=== PATIENT | male | born 1980 | race Caucasian/White ===

== ENCOUNTER 2017-11-15 00:08 | Emergency (ER) | payer OTHER ==
--- OUTSIDE RECORDS SUMMARY | 2017-11-15 00:11 | XMS REPORT | Clinical Summary ---
:1980 Author Organization [facility] Address [address] [place] [address] Care Team Providers Name Role Phone Eric Sheldon MD Primary Care Provider Allergies Active Allergy Reactions Severity Noted Date Comments Silver Sulfadiazine Dermatitis Medium 01/01/2016 Ketorolac Rash Low 01/01/2016 Current Medications Prescription Sig. Disp. Refills Start Date End Date Status pregabalin (LYRICA) 150 Take 150 mg by mouth Active MG capsule 2 (two) times a day. traMADol (ULTRAM) 50 mg Take 50 mg by mouth Active tablet every 6 (six) hours as needed for moderate pain. Active Problems Problem Noted Date Herniated lumbar intervertebral disc 01/09/2016 Encounters Date Type Specialty Care Team Description 10/23/2017 Orders Only Neurosurgery Giselle Louis Lumbar radiculopathy ( Primary Dx) after 11/14/2016 Social History Tobacco Use Types Packs/Day Years Used Date Former Smoker 2 15 Comments: 03/2015 Alcohol Use Drinks/Week oz/Week Comments No Sex Assigned at Date Recorded Not on file Last Filed Vital Signs Not on file Plan of Treatment Health Maintenance Due Date Last Done Comments INFLUENZA VACCINE 02/10/2018 Implants Implanted Type Area Director Records Management Device Expiration Model / Identifier Date Serial / Lot System Spine Selnt For Dural Selng Exact 5ml Duraseal - [id number] Cardiovascular Right: INTEGRA / Implanted: 01/09/2016 (Quantity not on file) Implants Thoracic LIFESCIENCE / NEURO Results Not on fileafter 11/14/2016 Insurance Payer Benefit Plan / Group Subscriber ID Type Phone Address [facility] CHOICE/CHOICE + xxxxxxxxx HMO/PPO Home: [id number] [phone] [address]
--- NOTE | 2017-11-15 01:29 | ER ---
Nurse's Notes [facility] Name: Wilber Gregory Age: 37 yrs Sex: Male : 1980 Arrival Date: 11/15/2017 Time: 00:12 Bed 13 Private MD: Diagnosis: Irritant contact dermatitis Presentation: 11/15 00:40 Presenting complaint: Patient states: he has rash to right arm and right side of face fc that he noticed Thursday. Areas itch, burn and hurt. Applied Calamine to it with no relief. Transition of care: patient was not received from another setting of care. Onset of symptoms was November 13, 2017. Initial Sepsis Screen: Does the patient meet any 2 criteria? No. Patient's initial sepsis screen is negative. Does the patient have a suspected source of infection? No. Patient's initial sepsis screen is negative. Care prior to arrival: None. 00:40 Method Of Arrival: Ambulatory fc 00:40 Acuity: UMESH 4 fc Triage Assessment: 00:43 General: Appears uncomfortable, Behavior is calm, cooperative, appropriate for age. fc Pain: Complains of pain in right arm Pain currently is 3 out of 10 on a pain scale. Quality of pain is described as burning, dull, Pain began 2-3 days ago. Is continuous. EENT: No deficits noted. Neuro: Level of Consciousness is awake, alert, obeys commands, Oriented to person, place, time, situation. Cardiovascular: No deficits noted. Respiratory: No deficits noted. GI: No deficits noted. : No deficits noted. Derm: Skin is pink, warm \T\ dry. Rash noted that is itchy, red, raised, vesicular, on face and right arm. Musculoskeletal: Circulation, motion, and sensation intact. Capillary refill < 3 seconds, Range of motion: intact in all extremities. Historical: - Allergies: 00:43 Silvadene; fc 00:43 Toradol (Hives, rash); fc - Home Meds: 00:43 Lyrica 150 mg Oral 2 times per day [Active]; Paulina 10-325 mg oral tab 1 tab three times fc a day [Active]; baclofen 10 mg Oral tab 1 tab as needed [Active]; - PMHx: 00:43 Chronic pain; Back pain; fc - PSHx: 00:43 back surg x 2; Hernia repair; fc - Immunization history:: Last tetanus immunization: up to date. - Social history:: Smoking status: Patient uses tobacco products, smokes one-half pack cigarettes per day. Screenin:30 Abuse screen: Denies threats or abuse. Nutritional screening: No deficits noted. ea Tuberculosis screening: No symptoms or risk factors identified. Fall Risk None identified. Assessment: 01:27 General: Appears uncomfortable, Behavior is calm, cooperative, appropriate for age. ea Pain: Complains of pain in right arm Pain currently is 7 out of 10 on a pain scale. Quality of pain is described as burning. Neuro: Level of Consciousness is awake, alert, obeys commands, Oriented to person, place, time, situation. Cardiovascular: Patient's skin is warm and dry. Respiratory: Airway is patent Respiratory effort is even, unlabored, Respiratory pattern is regular, symmetrical. GI: No signs and/or symptoms were reported involving the gastrointestinal system. : No signs and/or symptoms were reported regarding the genitourinary system. EENT: No signs and/or symptoms were reported regarding the EENT system. Derm: Rash noted that is draining clear fluid, itchy, red, on right cheek, right ear and right roman catholic, right forearm and right upper arm. 01:39 Reassessment: Patient and/or family updated on plan of care and expected duration. Pain ea level reassessed. Patient is alert, oriented x 3, equal unlabored respirations, skin warm/dry/pink. Discharge instructions given to patient, verbalized the understanding of instruction. Vital Signs: 00:44 BP 127 / 90; Pulse 99; Resp 18; Temp 98.5(O); Pulse Ox 98% on R/A; Weight 93.89 kg (R); fc Height 5 ft. 10 in. (177.80 cm) (R); Pain 3/10; 01:29 BP 124 / 81; Pulse 89; Resp 18 S; Pulse Ox 97% ; Pain 7/10; ea 00:44 Body Mass Index 29.70 (93.89 kg, 177.80 cm) ED Course: 00:12 Patient arrived in ED. do 00:41 Triage completed. fc 00:44 Arm band placed on Patient placed in an exam room. fc 01:14 Shayna Ruiz RN is Primary Nurse. ea 01:19 Yeny Mae FNP-C is [facility]. snw 01:19 Collin Trujillo MD is Attending Physician. snw 01:30 Patient has correct armband on for positive identification. Bed in low position. Call ea light in reach. Side rails up X 1. 01:39 No provider procedures requiring assistance completed. Patient did not have IV access ea during this emergency room visit. Administered Medications: 01:36 Drug: ZyrTEC - Cetirizine 10 mg Route: PO; ea 01:41 Follow up: Response: Medication administered at discharge. ea 01:36 Drug: predniSONE 40 mg Route: PO; ea 01:40 Follow up: Response: Medication administered at discharge. ea 01:36 Drug: Pepcid 20 mg Route: PO; ea 01:40 Follow up: Response: Medication administered at discharge. ea Outcome: 01:28 Discharge ordered by . snw 01:39 Discharged to home ambulatory, with family. ea 01:39 Condition: improved 01:39 Discharge instructions given to patient, Instructed on discharge instructions, follow up and referral plans. medication usage, Demonstrated understanding of instructions, follow-up care, medications, Prescriptions given X 3. 01:40 Patient left the ED. ea Signatures: Yeny Mae FNP-C [employer]BBER WASHER-Csnw Meredith Roldan, RN RN Gerri Nayak Elena RN RN julain
--- NOTE | 2017-11-15 01:30 | EDPHYS ---
Physician Documentation [facility] Name: Wilber Gregory Age: 37 yrs Sex: Male : 1980 Arrival Date: 11/15/2017 Time: 00:12 Bed 13 Private MD: ED Physician Collin Trujillo HPI: 11/15 01:54 This 37 yrs old Male presents to ER via Ambulatory with complaints of Skin snw Problem. 01:54 The patient's rash thought to be caused by Dermatitis. The rash is located on the right snw cheek and right arm. The rash can be described as erythematous, patchy, pustular, raised, linear. Onset: The symptoms/episode began/occurred suddenly, 3 day(s) ago, and became persistent. Severity of symptoms: At their worst the symptoms were moderate. The patient has not experienced similar symptoms in the past, but family has similar symptoms. The patient has not recently seen a physician. Historical: - Allergies: 00:43 Silvadene; fc 00:43 Toradol (Hives, rash); fc - Home Meds: 00:43 Lyrica 150 mg Oral 2 times per day [Active]; [place] 10-325 mg oral tab 1 tab three times fc a day [Active]; baclofen 10 mg Oral tab 1 tab as needed [Active]; - PMHx: 00:43 Chronic pain; Back pain; fc - PSHx: 00:43 back surg x 2; Hernia repair; fc - Immunization history:: Last tetanus immunization: up to date. - Social history:: Smoking status: Patient uses tobacco products, smokes one-half pack cigarettes per day. ROS: 01:51 Constitutional: Negative for fever, chills, and weight loss, Eyes: Negative for injury, snw pain, redness, and discharge, ENT: Negative for injury, pain, and discharge, Neck: Negative for injury, pain, and swelling, Cardiovascular: Negative for chest pain, palpitations, and edema, Respiratory: Negative for shortness of breath, cough, wheezing, and pleuritic chest pain, Abdomen/GI: Negative for abdominal pain, nausea, vomiting, diarrhea, and constipation, Back: Negative for injury and pain, : Negative for injury, bleeding, discharge, and swelling, MS/Extremity: Negative for injury and deformity, Neuro: Negative for headache, weakness, numbness, tingling, and seizure. 01:51 Skin: Positive for rash. Exam: 01:51 Constitutional: This is a well developed, well nourished patient who is awake, alert, snw and in no acute distress. Head/Face: Normocephalic, atraumatic. Eyes: Pupils equal round and reactive to light, extra-ocular motions intact. Lids and lashes normal. Conjunctiva and sclera are non-icteric and not injected. Cornea within normal limits. Periorbital areas with no swelling, redness, or edema. ENT: Nares patent. No nasal discharge, no septal abnormalities noted. Tympanic membranes are normal and external auditory canals are clear. Oropharynx with no redness, swelling, or masses, exudates, or evidence of obstruction, uvula midline. Mucous membranes moist. Neck: Trachea midline, no thyromegaly or masses palpated, and no cervical lymphadenopathy. Supple, full range of motion without nuchal rigidity, or vertebral point tenderness. No Meningismus. Chest/axilla: Normal chest wall appearance and motion. Nontender with no deformity. No lesions are appreciated. Cardiovascular: Regular rate and rhythm with a normal S1 and S2. No gallops, murmurs, or rubs. Normal PMI, no JVD. No pulse deficits. Respiratory: Lungs have equal breath sounds bilaterally, clear to auscultation and percussion. No rales, rhonchi or wheezes noted. No increased work of breathing, no retractions or nasal flaring. Abdomen/GI: Soft, non-tender, with normal bowel sounds. No distension or tympany. No guarding or rebound. No evidence of tenderness throughout. Back: No spinal tenderness. No costovertebral tenderness. Full range of motion. MS/ Extremity: Pulses equal, no cyanosis. Neurovascular intact. Full, normal range of motion. Neuro: Awake and alert, GCS 15, oriented to person, place, time, and situation. Cranial nerves II-XII grossly intact. Motor strength 5/5 in all extremities. Sensory grossly intact. Cerebellar exam normal. Normal gait. Psych: Awake, alert, with orientation to person, place and time. Behavior, mood, and affect are within normal limits. 01:51 Skin: Appearance: normal except for affected area, contact dermatitis, on the right cheek and right arm. Vital Signs: 00:44 BP 127 / 90; Pulse 99; Resp 18; Temp 98.5(O); Pulse Ox 98% on R/A; Weight 93.89 kg (R); fc Height 5 ft. 10 in. (177.80 cm) (R); Pain 3/10; 01:29 BP 124 / 81; Pulse 89; Resp 18 S; Pulse Ox 97% ; Pain 7/10; ea 00:44 Body Mass Index 29.70 (93.89 kg, 177.80 cm) fc MDM: 01:20 Patient medically screened. snw 01:52 Data reviewed: vital signs, nurses notes. Data interpreted: Pulse oximetry: on room air snw is 97 %. Interpretation: normal. Counseling: I had a detailed discussion with the patient and/or guardian regarding: the historical points, exam findings, and any diagnostic results supporting the discharge/admit diagnosis, the presence of at least one elevated blood pressure reading (>120/80) during this emergency department visit, the need for outpatient follow up, to return to the emergency department if symptoms worsen or persist or if there are any questions or concerns that arise at home. Special discussion: I have referred the patient to see his PCP for further evaluation of high blood pressure. Based on the history and exam findings, there is no indication for further emergent testing or inpatient evaluation. I discussed with the patient/guardian the need to see the primary care provider for further evaluation of the symptoms. Administered Medications: 01:36 Drug: ZyrTEC - Cetirizine 10 mg Route: PO; ea 01:41 Follow up: Response: Medication administered at discharge. ea 01:36 Drug: predniSONE 40 mg Route: PO; ea 01:40 Follow up: Response: Medication administered at discharge. ea 01:36 Drug: Pepcid 20 mg Route: PO; ea 01:40 Follow up: Response: Medication administered at discharge. ea Disposition: 05:21 Co-signature as Attending Physician, Collin Trujillo MD. pkl Disposition: 11/15/17 01:28 Discharged to Home. Impression: Irritant contact dermatitis. - Condition is Stable. - Discharge Instructions: Contact Dermatitis, Hypertension, Cryotherapy. - Prescriptions for Pepcid 20 mg Oral Tablet - take 1 tablet by ORAL route every 12 hours for 10 days; 20 tablet. Zyrtec 10 mg Oral Tablet - take 1 tablet by ORAL route once daily As needed; 20 tablet. Prednisone 20 mg Oral Tablet - take 2 tablet by ORAL route once daily for 5 days; 10 tablet. - Medication Reconciliation Form, Thank You Letter, Antibiotic Education, Prescription Opioid Use form. - Follow up: Private Physician; When: 2 - 3 days; Reason: Recheck today's complaints, Continuance of care, Re-evaluation by your physician. Follow up: Emergency Department; When: As needed; Reason: Worsening of condition. - Notes: [employer] Poison Renée Soap Signatures: Collin Trujillo MD MD pkl Therrien, Shelly, FARROWING WORKER-C FARROWING WORKER-Csnw Meredith Roldan RN RN Shayna Rodriguez RN RN ea Corrections: (The following items were deleted from the chart) 01:40 01:28 11/15/2017 01:28 Discharged to Home. Impression: Irritant contact dermatitis. ea Condition is Stable. Forms are Medication Reconciliation Form, Thank You Letter, Antibiotic Education, Prescription Opioid Use. Follow up: Private Physician; When: 2 - 3 days; Reason: Recheck today's complaints, Continuance of care, Re-evaluation by your physician. Follow up: Emergency Department; When: As needed; Reason: Worsening of condition. snw
[2017-11-15] MEDS ORDERED: CETIRIZINE HCL 5 MG TABLET ONE (01:34)
[2017-11-15] MEDS ORDERED: predniSONE 20 MG TAB ONE (01:34)
[2017-11-15] MEDS ORDERED: FAMOTIDINE 20 MG TAB ONE (01:34)
== END 2017-11-15 01:40 | disposition home or self-care (01) ==
LOC: ER 00:08
DX: L24.9 Irritant contact dermatitis, unspecified cause (principal); F17.210 Nicotine dependence, cigarettes, uncomplicated; Z88.6 Allergy status to analgesic agent; Z88.8 Allergy status to other drugs, medicaments and biological substances
CPT/HCPCS: 99283; J7512

== ENCOUNTER 2018-08-20 13:49 | Emergency (ER) | payer OTHER, SELFPAY ==
--- OUTSIDE RECORDS SUMMARY | 2018-08-20 13:51 | XMS REPORT | Clinical Summary ---
:1980 Author Organization [facility] Address [address] [place] [address] Care Team Providers Name Role Phone Eric Sheldon MD Primary Care Provider Allergies Active Allergy Reactions Severity Noted Date Comments Silver Sulfadiazine Dermatitis Medium 01/01/2016 Ketorolac Rash Low 01/01/2016 Medications Medication Sig Dispensed Refills Start Date End Date Status pregabalin (LYRICA) Take 150 mg by 0 Active 150 MG capsule mouth 2 (two) times a day. traMADol (ULTRAM) 50 Take 50 mg by mouth 0 Active mg tablet every 6 (six) hours as needed for moderate pain. Active Problems Problem Noted Date Herniated lumbar intervertebral disc 01/09/2016 Encounters Date Type Specialty Care Team Description 10/23/2017 Orders Only Neurosurgery Giselle Louis Lumbar radiculopathy ( Primary Dx) after 08/19/2017 Social History Tobacco Use Types Packs/Day Years Used Date Former Smoker 2 15 Comments: 03/2015 Alcohol Use Drinks/Week oz/Week Comments No Sex Assigned at Date Recorded Not on file Job Start Date Occupation Industry Not on file Not on file Not on file Travel History Travel Start Travel End No recent travel history available. Last Filed Vital Signs Not on file Plan of Treatment Health Maintenance Due Date Last Done Comments INFLUENZA VACCINE 02/10/2018 Implants Implanted Type Area Radarman Device Shelf Model / Identifier Expiration Serial / Date Lot System Spine Selnt For Dural Selng Exact 5ml Duraseal - [id number] Cardiovascular Right: [id number] / Implanted: 01/09/2016 (Quantity not on file) Implants Thoracic LIFESCIENCE / NEURO Results Not on fileafter 08/19/2017 Insurance Payer Benefit Plan / Group Subscriber ID Type Phone Address [employer] CHOICE/CHOICE + xxxxxxxxx HMO/PPO Advance Directives Patient has advance care planning documents, and code status on file. For more information, please contact:Mj Canales[address] [place] [address] Code Status Date Activated Date Inactivated Comments Full Code 01/09/2016 11:37 AM 01/09/2016 3:11 PM Code Status decision reached by: Patient
[2018-08-20] MEDS ORDERED: HYDROCODONE/APAP 5/325 MG TAB ONE (16:11)
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
[2018-08-24 15:13] LABS: HIV AG/AB 4TH GEN Non-reactive (Non-reactive)
[2018-08-25 04:03] LABS: HBsAG Nonreactive (Nonreactive)
== END 2018-08-20 18:01 | disposition home or self-care (01) ==
LOC: ER 13:49
DX: S02.2XXA Fracture of nasal bones, initial encounter for closed fracture (principal); X99.1XXA Assault by knife, initial encounter; Y93.9 Activity, unspecified; Y92.9 Unspecified place or not applicable; Z88.5 Allergy status to narcotic agent; Z88.8 Allergy status to other drugs, medicaments and biological substances; F17.210 Nicotine dependence, cigarettes, uncomplicated
CPT/HCPCS: 70450; 70486; 72125; 76377; 86705; 86803; 87340; 87389; 99284

== ENCOUNTER 2021-03-12 11:19 | Emergency (ER) | payer BC ==
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
[2021-03-12 13:34] LABS: Absolute Lymphocytes (CBC) 4.3 K/uL (0.7-4.9); Basophils % 1.2 % (0-1.3); Hematocrit 44.9 % (39.6-49.0); Lymphocytes % 41.4 % (15.3-44.8); MPV 8.9 fL (7.6-11.3); RBC Red Blood Cell Count 5.07 M/uL (4.33-5.43)
[2021-03-12 13:55] LABS: ALT/SGPT 63 U/L (12-78); AST/SGOT 25 U/L (15-37); Alkaline Phosphatase 78 U/L (45-117); BUN Blood Urea Nitrogen 12 mg/dL (7-18); Bicarbonate 24 mmol/L (21-32); Bilirubin Direct < 0.1 mg/dL (0-0.2); Bilirubin Total 0.3 mg/dL (0.2-1.0); Glucose Level 96 mg/dL (74-106); NT PRO-BNP 38 pg/mL (<125); Protein, Total 7.6 g/dL (6.4-8.2); Sodium Level 139 mmol/L (136-145); Troponin (Emerg Dept Use Only) < 0.02 ng/mL (0.0-0.045)
--- NOTE | 2021-03-12 14:16 | RAD REPORT ---
EXAM DESCRIPTION: RAD - Chest Single View - 03/12/2021 2:05 pm CLINICAL HISTORY: MD discretion COMPARISON: Chest Pa And Lat (2 Views) dated 03/05/2021; Chest Single View dated 01/23/2017; Chest Pa And Lat (2 Views) dated 12/13/2015 FINDINGS: No evidence of edema or pneumonia. The heart size is within normal limits.No acute osseous abnormality. No significant pleural effusions or pneumothorax. IMPRESSION: No acute cardiopulmonary disease.
--- NOTE | 2021-03-12 16:51 | ER ---
Nurse's Notes [facility] Name: Wilber Gregory Age: 40 yrs Sex: Male : 1980 Arrival Date: 03/12/2021 Time: 11:20 Bed Waiting Private MD: Diagnosis: Presentation: 03/12 13:08 Chief complaint: Patient states: chest pain that began 45 minutes ago. Pt also reports aa5 SOB. Denies recent illness. Coronavirus screen: shortness of breath. Ebola Screen: Patient negative for fever greater than or equal to 101.5 degrees Fahrenheit, and additional compatible Ebola Virus Disease symptoms. Onset of symptoms was February 2021. 13:08 Method Of Arrival: Ambulatory aa5 13:08 Acuity: UMESH 3 aa5 13:08 Initial Sepsis Screen: Does the patient meet any 2 criteria? HR > 90 bpm. Does the aa5 patient have a suspected source of infection? No. Patient's initial sepsis screen is negative. Risk Assessment: Do you want to hurt yourself or someone else? Patient reports no desire to harm self or others. Historical: - Allergies: 13:09 Silvadene; aa5 13:09 Toradol (Hives, rash); aa5 - Home Meds: 13:09 baclofen 10 mg Oral tab 1 tab as needed [Active]; Lyrica 150 mg Oral 2 times per day aa5 [Active]; Flatgap 10-325 mg Oral tab 1 tab three times a day [Active]; Augmentin Oral for nose infection [Active]; - PMHx: 13:09 Back pain; Chronic pain; aa5 13:09 Recurrent nose infections post op; aa5 - PSHx: 13:09 nose sx; spinal fusion; hernia; aa5 - Immunization history:: Client reports having NOT received the Covid vaccine. - Social history:: Smoking status: Patient reports the use of cigarette tobacco products, smokes one-half pack cigarettes per day. Vital Signs: 13:08 BP 140 / 104; Pulse 101; Resp 20 S; Temp 97.5(TE); Pulse Ox 97% on R/A; Weight 100.7 kg aa5 (R); Height 5 ft. 10 in. (177.80 cm) (R); Pain 5/10; 13:08 Body Mass Index 31.85 (100.70 kg, 177.80 cm) 5 ED Course: 11:20 Patient arrived in ED. as 13:08 Arm band placed on. aa5 13:09 Triage completed. aa5 13:19 EKG completed in triage. Results shown to . [facility] 13:19 Initial lab(s) drawn, by ED staff, sent to lab. Inserted saline lock: 20 gauge in right aa5 antecubital area, using aseptic technique. Blood collected. 14:05 XRAY Chest (1 view) In Process Unspecified. EDMS 16:50 IV discontinued, intact, bleeding controlled, No redness/swelling at site. Pressure jl7 dressing applied. 16:51 Irving Bautista MD is Attending Physician. jl7 Administered Medications: No medications were administered Outcome: 16:51 Patient left the ED. jl7 Signatures: Dispatcher [employer] EDMS Malgorzata Cardoza Audri, RN RN aa5 Blossom Garnett RN RN jl7
[2021-03-12 16:55] VITALS: BP 140/104; TEMP 97.5; O2SAT 97
== END 2021-03-12 16:51 | disposition left against medical advice (07) ==
LOC: ER 11:19
DX: Z53.21 Procedure and treatment not carried out due to patient leaving prior to being seen by health care provider (principal)
CPT/HCPCS: 36415; 71045; 80048; 80076; 83735; 83880; 84484; 85025; 85610; 93005; 99283